=== PATIENT | male | born 1945 | race Caucasian/White ===

== ENCOUNTER 2016-07-12 08:36 | Day surgery (SDC) | payer MEDICARE, MEDICAID ==
[~2016-07-12] VITALS: Ht 175.3 cm; Wt 106.0 kg
[~2016-07-12 08:36] MED LIST: 0.9% Sodium Chloride 1,000 ML IV PRN; ALBU2.5V4 INHALATION; ALBU8.5H2 INHALATION; ASPI-973 PO; ATOR40TA69 PO; BECL8.7A5 INHALATION; CHOL10008 PO; FLUO20TA28 PO; IBUP-1827 PO; LEVO25TA5 PO; LIP40 PO; LISI10TA PO; METF500T4 PO; OMEP20CA11 PO; OXYC-466 PO; OXYC10TA69 PO; SILD20TA14 PO; Sodium Chloride LOK Flush 10 mL Syringe IV PRN; fentaNYL-PF 50 mCg/mL 2 mL Inj IVPUSH PRN
[2016-07-12 09:01] VITALS: BP 109/60; PULSE 65; RESP 14; O2SAT 96
--- NOTE | 2016-07-12 09:40 | PCM.ENDCOL ---
Colonoscopy Date of Service: Jul 12, 2016 Physician Hansel Mason MD Indication for Procedure Screening colonoscopy. History of polyp. Post Procedure Dx & Findings: Polyp hemorrhoids diverticuli Procedure Colonoscopy Prep adequate Cecum 2 minutes Withdrawal 14 minutes PROCEDURE IN DETAIL: After unremarkable rectal examination of the Olympus video colonoscope was inserted patient's anal canal was advanced to the cecum. Landmarks are identified including the ileocecal valve and the appendiceal orifice. Scope was withdrawn systematically. The mucosa of the cecum, ascending, transverse, descending, sigmoid, rectal mucosa lined with whitish, pink, smooth, glistening, normal-appearing mucosa, normal fine branching, underlying vascularity, normal haustra. The patient tolerated procedure and was transported to observation area. In the cecum, there was a 1 mm polyp which was resected completely using cold forceps. In the transverse colon, there was a 1 mm polyp which was resected completely using cold forceps. There was also a 3 mm polyp which was resected completely using cold snare. Multiple diverticuli noted concentrated in the sigmoid colon however there were some isolated diverticula into the ascending colon. In the rectum, there was a 4 mm polyp which was resected completely using cold snare. Retroflexion was done which showed mild hemorrhoids. Anal canal was inspected carefully on the way out and mild hemorrhoids noted. Impression Polyps times 4 status post complete removal Hemorrhoids Diverticuli History of polyps Recommendation Repeat colonoscopy 3 years Diverticular diet Presedation Assessment Risks and Benefits Informed consent was obtained from the patient after all risks and benefits including but not limited to drug reaction, infection, pain, bleeding, perforation, as well as alternatives were discussed. Patient monitoring Continuous pulse oximetry, cardiac monitoring, blood pressure monitoring, IV access, and oxygen at 2L per nasal cannula. Periprocedural Fentanyl: Fentanyl 75mcg Incrementally Midazolam: Midazolam 3mg Incrementally Complications There were no periprocedural complications identified. Post Procedure Plan Post Procedure Recommendations 1. Restrict activities today. 2. Resume normal activities in the morning. 3. Resume medications. 4. Patient informed of normal post procedure side effects as bloating, drowsiness, blood streaking in the stool. 5. average risk CRCS. If colon polyps come back as: -Hyperplastic- can repeat colonoscopy in 10 years -Tubular adenoma- repeat colonoscopy in 5 years -Tubulovillous/villous adenoma- repeat colonoscopy in 3 years -If any dysplasia- return to clinic as soon as possible 6. Please don't hesitate to call me with any questions. Hansel Mason MD Jul 12, 2016 09:40
[2016-07-12 09:41] VITALS: BP 110/77; PULSE 68; RESP 14; O2SAT 92
[2016-07-12 09:54] VITALS: BP 123/80; PULSE 67; RESP 14; O2SAT 94
[2016-07-12 10:00] VITALS: BP 155/73; PULSE 65; RESP 14; O2SAT 95
--- NOTE | 2016-07-13 13:19 | PATH ---
SURGICAL PATHOLOGY Attending Physician:Hansel Mason M.D. CASE STATUS: Signed Out * Amended * PATIENT NAME: LARISSA DIEZ PID: [id number] : 1945 DATE COLLECTED:07/12/2016 15:58 SPECIMEN: 1: Colon, Biopsy 2: Colon, Biopsy 3: Rectum, Biopsy CLINICAL HISTORY: 1). CECAL POLYP X1 2). TRANSVERSE COLON POLYPS X2 3). RECTAL POLYP X1 FINAL DIAGNOSIS: 1.CECAL POLYP: TUBULAR ADENOMA. 2.TRANSVERSE COLON POLYPS: TUBULAR ADENOMA INVOLVING BOTH BIOPSY FRAGMENTS. 3.RECTAL POLYP (AMMENDED DIAGNOSIS): HYPERPLASTIC POLYP (SEE COMMENT). ICD10 CODE D12.0 NOTE: Upon review at this time, the rectal polyp in part 3, which was originally considered to be a serrated adenoma, traditional type with mild dysplasia, is better classified as a hyperplastic polyp. This amended report is dictated at this time in order to make this diagnostic change. GROSS DESCRIPTION: The specimen is received in three formalin filled containers labeled with the patient's name. 1). The specimen is sublabeled "cecal polyp" and consists of a 0.2 x 0.2 x 0.2 CM portion of tissue which is entirely submitted in cassette 1A. 2). The specimen is sublabeled "transverse colon polyps" and consists of 2 portions of tissue which aggregate to 0.3 x 0.3 x 0.2 CM. Specimen is entirely submitted in cassette 2A. 3). The specimen is sublabeled "rectal polyp" and consists of a 0.3 x 0.3 x 0.3 CM portion of tissue which is entirely submitted in cassette 3A. 07/12/2016 DAC MICRO DESCRIPTION: See diagnosis. ICD-9 CODES: CPT CODES: 1: 52307 2: 25464 3: 30938 AMENDMENT(S): Amended: 09/27/2016 by Mary Lou Becerra Reason:Amended Diagnosis ADMENDED DIAGNOIS 3. Rectal Polyp: Hyperplastic polyp (see comment). Previous Signout Date: 07/13/2016 Electronically Signed Out Carmelo Torres MD [facility] Pathology [facility], [place] [address] Technical component performed at [facility], [address] [place] [address] [address], [place], [address]
== END 2016-07-12 23:59 | disposition home or self-care (01) ==
LOC: END 08:36
PROVIDERS: ATTEND Internal Medicine
DX: Z12.11 Encounter for screening for malignant neoplasm of colon (principal); D12.0 Benign neoplasm of cecum; D12.3 Benign neoplasm of transverse colon; D12.8 Benign neoplasm of rectum; Z86.010 Personal history of colon polyps; I10 Essential (primary) hypertension; G47.33 Obstructive sleep apnea (adult) (pediatric); E78.5 Hyperlipidemia, unspecified; E03.9 Hypothyroidism, unspecified; E11.9 Type 2 diabetes mellitus without complications; I25.10 Atherosclerotic heart disease of native coronary artery without angina pectoris; K21.9 Gastro-esophageal reflux disease without esophagitis; Z79.84 Long term (current) use of oral hypoglycemic drugs; Z79.51 Long term (current) use of inhaled steroids; Z79.82 Long term (current) use of aspirin
CPT/HCPCS: 45380; 45385; J2250; J7030

== ENCOUNTER → 2017-01-19 | Day surgery (SDC) | payer MEDICARE, MEDICAID ==
[~2017-01-19] VITALS: Ht 175.3 cm; Wt 106.6 kg
[~2017-01-19] MED LIST changes: -0.9% Sodium Chloride 1,000 ML IV PRN; -ATOR40TA69 PO; -BECL8.7A5 INHALATION; +BECL8.7A6 INHALATION; +Clindamycin 900 mg/50 mL D5W IV ONE; +Dexamethasone 4 mg/mL Inj IVPUSH PRN; +EPHEDrine Sulfate 50 mg/mL Inj IVPUSH PRN; +GABA-502 PO; +HYDROmorphone 1 mg/mL Inj IVPUSH PRN; -IBUP-1827 PO; +IPRA3AMP IH; -LISI10TA PO; +Lactated Ringer's 1,000 ML IV SCH; +Lactated Ringer's 500 ML IV PRN; +MetoCLOpramide 5 mg/mL 2 mL Inj IVPUSH PRN; -OMEP20CA11 PO; +OMEP20TA24 PO; +OMEP20TA86 PO; +Ondansetron 2 mg/mL 2 mL Inj IVPUSH PRN; +Phenylephrine 10,000 mCg/mL Inj IVPUSH PRN; -Sodium Chloride LOK Flush 10 mL Syringe IV PRN; +fentaNYL-PF 50 mCg/mL 2 mL Inj ONE
[2017-01-19] MEDS: Lactated Ringer's 1,000 ML IV SCH ×2 (06:06→07:00)
[2017-01-19 06:40] VITALS: BP 119/69; PULSE 60; RESP 18; O2SAT 95
--- NOTE | 2017-01-19 08:40 | PCM.HPANE ---
Patient Data Surgeon Admitting Provider: Attending Provider:Ronnie Moreno MD Primary Care Physician:Mary Nolan MD Other Provider:Rachel Pottsingham Anesthesia Reason for Visit Left Carpal Tunnel Syndrome Ht/WT & BMI Height (Feet): 5 Height (Inches): 9 Weight (Kilograms): 106.59 Body Mass Index 34.00 Allergies Coded Allergies: Penicillins (Verified Allergy, Unknown, 04/22/09) morphine (Verified Adverse Reaction, Intermediate, VOMITTING, 11/29/15) Past Anesthesia History Anesthesia History: Denies:: Abnormal Airway, Anesthesia Reactions, Difficult Intubation, Fam Anesthesia Reaction, Fam Malignant Hypertherm, Malignant Hyperthermia Diabetes History Hx Diabetes?: Yes Type of Diabetes: Type II Glycemic Control: Oral Medication Current Bedside Blood Glucose: 115 MRSA MRSA: No Medications Blood Thinner: Aspirin Hypertension Medication: Yes Home Meds Incl Beta Gabriele: No Reported Medications Cholecalciferol (Vitamin D3) (Vitamin D3)1,000 Unit Tab.chew1,000 Unit PO DAILY 01/12/17 Sildenafil Citrate (Sildenafil)20 Mg Fkrfmn04-90 Mg PO PRN erectile dysfunction 01/12/17 Beclomethasone Dipropionate (Qvar)8.7 Gm Aer.w.adap1 Puff INHALATION BID #8.7 GM 01/12/17 Albuterol HFA (Proair HFA)8.5 Gm Hfa.aer.ad2 Puffs INHALATION Q4H PRN For Shortness of Breath #1 INHALER 01/12/17 Omeprazole Magnesium (Prilosec Otc)20 Mg Tablet.dr20 Mg PO DAILY #1 PKG Ref 0 01/12/17 oxyCODONE-Acetaminophen 10-325 mg 1 Each Tablet1 Tablet PO Q6H PRN For Pain Ref 0 01/12/17 Oxycodone ER (Oxycontin)10 Mg Tab.er.12h10 Mg PO QAM 01/12/17 Omeprazole 20 Mg Tablet.dr20 Mg PO DAILY 01/12/17 Metformin 500 Mg Icdcxc102 Mg PO DAILY Ref 0 01/12/17 Atorvastatin (Lipitor)40 Mg Bdhhuk17 Mg PO DAILY Ref 0 01/12/17 Levothyroxine 25 Mcg Bmbkth80 Mcg PO DAILY Ref 0 01/12/17 Ipratropium/Albuterol Sulfate (Iprat-Albut 0.5-3(2.5) mg/3 mL Inhalant Soln)3 Ml Ampul.neb3 Ml IH Q4H Ref 0 01/12/17 Gabapentin 300 Mg Wpmbcti414 Mg PO DAILY Ref 0 01/12/17 Fluoxetine 20 Mg Wlproj86 Mg PO DAILY Ref 0 01/12/17 Aspirin 81 Mg Bpilvt46 Mg PO DAILY Ref 0 01/12/17 Albuterol Neb Soln 2.5 Mg/3 Ml Vial.neb2.5 Mg INHALATION Q4H Ref 0 01/12/17 Discontinued Reported Medications Sildenafil Citrate (Sildenafil)20 Mg Vfvkvo44 Mg PO 07/09/16 Lisinopril 10 Mg Bfnbrk77 Mg PO DAILY 30 Days Ref 0 07/09/16 Atorvastatin (Lipitor)40 Mg Lvpomy26 Mg PO DAILY Ref 0 07/09/16 Cholecalciferol (Vitamin D3) (Vitamin D3)1,000 Unit Tab.chew1,000 Unit PO BID 02/07/16 Ibuprofen 600 Mg Dnudma054 Mg PO QID PRN For Pain Ref 0 02/07/16 Albuterol Neb Soln 2.5 Mg/3 Ml Vial.neb1 Neb INHALATION #180 02/07/16 Fluoxetine 20 Mg Tablet2 Tab PO DAILY #180 02/07/16 Omeprazole 20 Mg Capsule.dr1 Tablet PO DAILY #90 02/07/16 Atorvastatin Calcium 40 Mg Tablet1 Tablet PO DAILY #90 02/07/16 Metformin 500 Mg Tablet1 Tablet PO DAILY #90 02/07/16 Beclomethasone Dipropionate (Qvar)8.7 Gm Aer.w.adap2 Puffs INHALATION BID #9 02/07/16 Albuterol HFA (Proair HFA)8.5 Gm Hfa.aer.ad2 Puffs INHALATION ASDIRECTED #9 02/07/16 Levothyroxine 25 Mcg Tablet1 Tab PO DAILY #90 02/07/16 Oxycodone ER (Oxycontin)10 Mg Tab.er.12h1 Tablet PO MORNING #90 02/07/16 oxyCODONE-Acetaminophen 10-325 mg 1 Each Tablet1-2 Tablet PO QID PRN For Pain # 240 02/07/16 History History of ENT Problems?: No HEENT History: Positive for:: Sinus Problem (seasonal allergies) Denies:: Abnormal Airway Cataracts Difficult Intubation Dysphagia Hearing Problem Denture Type: None Teeth Condition: Within Normal Limits Hx of Heart Problems?: Yes Cardiovascular History: Positive for:: Chest Pain (INTERMITANT CHEST PAIN FOR THE LAST COUPLE OF WEEKS) Congestive Heart Failure Coronary Artery Disease Hypertension Denies:: Cardiac Surgery Edema Heart Murmur Irregular Heartbeat Pacemaker Thrombophlebitis Other History/Comments history of CAD, no history of AR or CHF. No recent problems with CP or HOLLIDAY. Can walk 3 FOS. Hx of Respiratory Problem?: Yes Respiratory History: Positive for:: Asthma (albuterol as needed ) Dyspnea (WITH 2002) Use of C-PAP Machine Use of Inhalers / NEBS Denies:: COPD Chest Surgery Emphysema Hemoptysis Oxygen Administration Pneumonia Tuberculosis Hx Neurologic Problems?: No Neurological History: Denies:: Alzheimer's Disease CVA Dementia Dizziness Headaches Parkinson's Disease Seizures Hx of GI Problems?: No Hx of Problems?: Yes Genitourinary History: Positive for:: Kidney Stones (remote hx of, passed spontaneously) Denies:: HX of Hemodialysis Urinary Tract Infection HX of Peritoneal Dialysis: No Male Hx: Denies:: Prostate Problems Scrotal Mass Testicular Surgery Skin History: Denies:: History Skin Disorders? Pressure Ulcers Hx Musculoskeletal Problems?: Yes Musculoskeletal History: Positive for:: Back Injury (hx of lumbar fusion) Musculoskeletal Trauma (left carpal tunnel current admission problem) Denies:: Joint Replacement Hx of Psycho/Social Problems?: No Psycho Social History: Denies:: Anxiety Bipolar Disorder Hx Depression Suicide Attempt Hx Surgeries?: Yes (appe, rotator cuff, lumbar fusion) Hx Any Other Health Problems?: Yes Other History: Positive for:: Hospitalization ([facility], 2002) Denies:: Cancer Thyroid Disease History Blood Transfusions: Denies:: Blood Transfuse Reaction Blood Transfusions Hx Diabetes: YesBedside Blood Glucose: 115 Hx Alcohol Use: No (prior hx of etoh use)Hx Substance Use: No Smoking Status: Current Some Day Smoker Have You Smoked inLast 12 mo: No Stop/Bang S-Snoring: Do You Snore Loudly: No T-Tired: feel tired, fatigued: Yes O-Obsered: Observed not breath: No P-Blood Pressure: treated: Yes B- Body Mass Index > 35 kg/m2: No A- Age over 50: Yes N- Neck Large Circumference: No G- Gender Male: Yes JANETH Total Score: 4 JANETH Risk Assessment: High Risk, =/>3 Yes JANETH Category 4 OutPt Procedure: Yes Risk Assessment Category Category 1A: Patient has history of documented sleep apnea, and HAS NOT received any narcotic, sedative or anesthesia administration during this stay. Category 1B: Patient has history of documented sleep apnea, and HAS received any narcotic , sedative or anesthesia administration during this stay Category 2: Patient has SUSPECTED Obstructive Sleep Apnea, and HAS received any narcotic , sedative or anesthesia administration during this stay. Category 3: Patient has SUSPECTED Obstructive Sleep Apnea and HAS NOT received narcotic, sedative or anesthesia administration during this stay. Category 4: Outpatient in Procedural Areas with known sleep apnea or who screen positive for High Risk via the STOP/BANG questionnaire. Exam Exam Vital Signs Vital Signs Date Time Temp Pulse Resp B/P Pulse Ox O2 Delivery O2 Flow Rate FiO2 01/19/17 06:46 CPAP/BIPAP 01/19/17 06:40 36.8 60 18 119/69 95 Room Air General Appearance: Alert HEENT/AIRWAY: MP 2, Neck Movement (from, 3 FB) Lungs: Clear to Auscultation Heart: Regular Rate/Rhythm Meds/Labs/Diagnostics Admission Meds Current Medications Lactated Ringer's (Lr) 1,000 ml @ 120 mls/hr Q8H20M IV Last administered on t 06:06; Start 01/19/17 at 05:00; Stop 01/19/17 at 13:19 Bedside Blood Glucose: 115 Plan Impression Patient chart reviewed, patient interviewed and anesthestic plan with risks, benefits, and alternatives discussed, and informed consent obtained. NPO per Anesth. Guidelines: Yes ASA Physical Status: ASA3 Severe Disease Anesthetic Plan: MAC Bene/Risks/Altern/Consents: Yes HP Complete Prior to Induction: Yes Other Discussed minerva block with sedation. All questions were answered and he agrees to proceed. Bob Escalera MD Jan 19, 2017 08:02
[2017-01-19 09:00] VITALS: BP 123/55; PULSE 70; RESP 17; O2SAT 97
--- NOTE | 2017-01-19 09:20 | PCM.ORTHOP ---
Orthopedic Operative Report Date of Service: Jan 19, 2017 Pre Operative Diagnosis Left carpal tunnel syndrome Post Operative Diagnosis Same Procedure Left carpal tunnel release Surgeon Surgeon: Ronnie Moreno MD Assistants: None Indication for Procedure Left carpal tunnel release Findings Per dictation Details of Procedure Narrative: The patient was taken to the operating room and placed on the operating room table in the supine position with a hand table. After time out with nursing, anesthesia and faculty, and minerva block was used. A nonsterile arm tourniquet was applied. The operative extremity was prepped and draped in the standard, sterile fashion. A standard volar open incision was made over the carpal tunnel after verifying the Cardinal and Rosemarie lines. I carefully dissected through the palmar fascia and transverse carpal ligament which was incised, ensuring a complete release proximally and distally. The median nerve appeared flattened and cyanotic indicative of longstanding chronic ischemic changes. The wound was subsequently irrigated and tourniquet was let down to ensure hemostasis. The wound was then closed with 4.0 Nylon suture. There were no complications. I was present and scrubbed in for the entire procedure. EBL was 1 cc. Findings: the median nerve appeared flattened and cyanotic indicative of longstanding chronic ischemic changes Grafts, Implants: None Complications There were no periprocedural complications identified. Condition Stable Anesthetic Administered: GA Catheters: None Output, Estimated Blood Loss: 1 Blood Admin during surgery: No Surgical Cast or Splint: Other Surgical Specimen Removed: No Specimen sent to Pathology: No copies to: Ronnie Moreno MD, Christopher L MD Jan 19, 2017 09:20
--- NOTE | 2017-01-19 09:24 | PCM.ANEP1 ---
Post Anesthesia PACU Phase 1 Assessment Vital Signs Vital Signs Date Time Temp Pulse Resp B/P Pulse Ox O2 Delivery O2 Flow Rate FiO2 01/19/17 06:46 CPAP/BIPAP 01/19/17 06:40 36.8 60 18 119/69 95 Room Air Anesthetic Administered: Regional Block Level of Alertness: Awake, talking GUTIERREZ's with Equal Strength: Yes Pain: No Nausea or Vomiting: No CV Function & Hydration Stable: Yes Airway Device: Oxygen Delivery: Simple Mask Lungs: Clear to Auscultation PACU Phase 2 Assessment Complications: No Follow up Care: N/A Patient Instructions Provided: N/A Bob Escalera MD Jan 19, 2017 09:24
[2017-01-19 09:45] VITALS: BP 136/80; PULSE 70; RESP 17; O2SAT 98
== END | disposition home or self-care (01) ==
LOC: SAS 06:08
PROVIDERS: ATTEND Orthopaedic Surgery
DX: G56.02 Carpal tunnel syndrome, left upper limb (principal); J45.20 Mild intermittent asthma, uncomplicated; E03.9 Hypothyroidism, unspecified; I10 Essential (primary) hypertension; I25.10 Atherosclerotic heart disease of native coronary artery without angina pectoris; E11.9 Type 2 diabetes mellitus without complications; G47.33 Obstructive sleep apnea (adult) (pediatric); N40.0 Benign prostatic hyperplasia without lower urinary tract symptoms; K21.9 Gastro-esophageal reflux disease without esophagitis; E78.5 Hyperlipidemia, unspecified; Z79.84 Long term (current) use of oral hypoglycemic drugs; Z79.51 Long term (current) use of inhaled steroids; Z79.82 Long term (current) use of aspirin
CPT/HCPCS: 64721; J2250; J3010; J3490; J7120